=== PATIENT | female | born 1940 | race Caucasian/White ===

== ENCOUNTER 2017-09-24 17:06 | Observation (INO) | payer MEDICARE, BC, OTHER ==
[~2017-09-24 17:06] MED LIST: ALPR.25 PO; COMMODE 3-IN-11 MIS; ENOX40P SQ; FOLI5CAP PO; GETGO ROLLING W1 MI1; HYDR-3516 PO; KONS100P3 PO; LISI10TA PO; ONDA4TAB7 PO; PERI8.6T PO; SENN1TAB PO; VENTAER INH; WHEEMIS3; XARE10TA PO
[2017-09-24 17:14] VITALS: BP 140/79; PULSE 159; RESP 18; TEMP 98; O2SAT 99
[2017-09-24 17:29] LABS: AUTOMATED NEUTROPHIL # 5.7 TH/MM3 (1.8-7.7); BASOPHIL # 0.1 TH/MM3 (0-0.2); BASOPHIL % 0.8 % (0.0-2.0); EOSINOPHIL # 0.6 TH/MM3 (0-0.4); EOSINOPHIL % 6.2 % (0.0-4.0); HEMATOCRIT 40.9 % (35.0-46.0); HEMOGLOBIN 13.6 GM/DL (11.6-15.3); LYMPH % 27.8 % (9.0-44.0); LYMPHOCYTE # 2.7 TH/MM3 (1.0-4.8); MEAN CORPUSCULAR HEMOGLOBIN 29.3 PG (27.0-34.0); MEAN CORPUSCULAR HGB CONC 33.3 % (32.0-36.0); MEAN PLATELET VOLUME 7.8 FL (7.0-11.0); MONO % 5.6 % (0.0-8.0); MONOCYTE # 0.5 TH/MM3 (0-0.9); NEUT % 59.6 % (16.0-70.0); PLATELET COUNT 303 TH/MM3 (150-450); RED BLOOD COUNT 4.64 MIL/MM3 (4.00-5.30); RED CELL DISTRIBUTION WIDTH 11.8 % (11.6-17.2); WHITE BLOOD COUNT 9.6 TH/MM3 (4.0-11.0)
[2017-09-24] MEDS ORDERED: SODIUM CHLORIDE 0.9% FLUSH 10 ML FLUSH IVF PRN (17:30)
[2017-09-24] MEDS ORDERED: ENOXAPARIN SODIUM 60 MG/0.6 ML SYRINGE SQ ONE (17:30)
[2017-09-24] MEDS ORDERED: DILTIAZEM HCL 25 MG/5 ML VIAL IV PUSH ONE (17:30)
[2017-09-24] MEDS ORDERED: SODIUM CHLORIDE 0.9% FLUSH 10 ML FLUSH IV FLUSH PRN ×2 (17:30→19:30)
[2017-09-24 17:34] VITALS: BP 117/65; PULSE 142; RESP 18; O2SAT 98
[2017-09-24 17:37] LABS: CHLORIDE 103 MEQ/L (98-107); SODIUM (NA) 137 MEQ/L (136-145)
--- NOTE | 2017-09-24 17:37 | PD ---
HPI Chief Complaint: Cardiac Complaint Time Seen by Provider: 17:12 Travel History International Travel<30 days: No Contact w/Intl Traveler<30days: No Traveled to known affect area: No History of Present Illness HPI C/O PALPITATIONS, WENT TO [facility] SHE WAS DIAGNOSED WITH ATRIAL FIBRILLATION AND SENT TO ER FOR FURTHER CARE. I EXPLAINED TO PATIENT THE NEED FOR RATE CONTROL AND ANTICOAGULATION WELL CARDIAC EVALUATION WITH ECHO TO EVAL IF VALVULAR VS NONVALVULAR CAUSE OF AFIB. PATIENT DENIES CP/SOB/COUGH/N/V/ D/ABDPAIN/CANTU/BACK PAIN. PATIENT GOT VISIBLY UPSET AND DID NOT WANT ANY CARE WITHOUT ME EXPLAINING MY PLAN WITH HER BROTHER WHO IS A MILL CONTROL OPERATOR OVER THE PHONE. I SHARED PLAN OVER THE PHONE TO DEESCALATE SITUATION. ALL:AMOXIL PCP PMHX:COPD, HTN PFSH Past Medical History Arthritis: No Asthma: Yes Autoimmune Disease: No Anxiety: No Depression: No Heart Rhythm Problems: No Cancer: No Cardiovascular Problems: No High Cholesterol: No Chemotherapy: No Chest Pain: No Congestive Heart Failure: No COPD: Yes Cerebrovascular Accident: No Diabetes: No Endocrine: No GERD: No Glaucoma: No Genitourinary: No Hepatitis: No Hypertension: No Immune Disorder: No Kidney Stones: No Musculoskeletal: No Neurologic: No Psychiatric: No Reproductive: No Respiratory: Yes Migraines: No Radiation Therapy: No Renal Failure: No Seizures: No Sickle Cell Disease: No Sleep Apnea: No Thyroid Disease: No Ulcer: No ?: Not : 2 Para: 2 Past Surgical History Abdominal Surgery: Yes (RIN INGUINAL HERNIA REPAIR) AICD: No Arteriovenous Shunt: No Cardiac Surgery: No Ear Surgery: No Endocrine Surgery: No Eye Surgery: Yes (BILATERAL EYELID LIFT) Genitourinary Surgery: No Gynecologic Surgery: No Insulin Pump: No Joint Replacement: No Oral Surgery: Yes (DEVIATED NASAL SEPTUM) Pacemaker: No Thoracic Surgery: No Other Surgery: Yes (COLONOSCOPY) Social History Alcohol Use: Yes (SOCIALLY) Tobacco Use: No Substance Use: No Allergies-Medications (Allergen,Severity, Reaction): Coded Allergies: amoxicillin (Unverified Allergy, Unknown, 09/24/17) Reported Meds & Prescriptions Reported Meds & Active Scripts Active Xanax (Alprazolam) 0.25 Mg Tab 0.25 Mg PO Q12HR PRN Review of Systems Except as stated in HPI: all other systems reviewed are Neg General / Constitutional: No: Fever Eyes: No: Visual changes HENT: No: Headaches Cardiovascular: Positive: Palpitations, Irregular Rhythm Respiratory: No: Shortness of Breath Gastrointestinal: No: Abdominal Pain Genitourinary: No: Dysuria Musculoskeletal: No: Pain Skin: No Rash Neurologic: No: Weakness Psychiatric: No: Depression Endocrine: No: Polydipsia Hematologic/Lymphatic: No: Easy Bruising Physical Exam Narrative GENERAL: SKIN: Warm and dry. HEAD: Atraumatic. Normocephalic. EYES: Pupils equal and round. No scleral icterus. No injection or drainage. ENT: No nasal bleeding or discharge. Mucous membranes pink and moist. NECK: Trachea midline. No JVD. CARDIOVASCULAR: TACHYCARDIC RATE, IRREGULARLY IRREGULAR RHYTHM RESPIRATORY: No accessory muscle use. Clear to auscultation. Breath sounds equal bilaterally. GASTROINTESTINAL: Abdomen soft, non-tender, nondistended. MUSCULOSKELETAL: Extremities without clubbing, cyanosis, or edema. No obvious deformities. NEUROLOGICAL: Awake and alert. No obvious cranial nerve deficits. Motor grossly within normal limits. Five out of 5 muscle strength in the arms and legs. Normal speech. PSYCHIATRIC: Appropriate mood and affect; insight and judgment normal. Data Data Last Documented VS Vital Signs Date Time Temp Pulse Resp B/P (MAP) Pulse Ox O2 Delivery O2 Flow Rate FiO2 09/24/17 17:43 82 18 103/65 (78) 97 Room Air 09/24/17 17:14 98.0 Orders Orders Ecg Monitoring (09/24/17 17:19) Blood Pressure (09/24/17 17:19) Iv Access Insert/Monitor (09/24/17 17:19) Oximetry (09/24/17 17:19) Vital Signs (09/24/17 17:19) Diltiazem Inj (Cardizem Inj) (09/24/17 17:30) Sodium Chloride 0.9% Flush (Ns Flush) (09/24/17 17:30) Electrocardiogram (09/24/17 17:19) B-Type Natriuretic Peptide (09/24/17 17:19) Ckmb (Isoenzyme) Profile (09/24/17 17:19) Complete Blood Count With Diff (09/24/17 17:19) Comprehensive Metabolic Panel (09/24/17 17:19) Prothrombin Time / Inr (Pt) (09/24/17 17:19) Act Partial Throm Time (Ptt) (09/24/17 17:19) Troponin I (09/24/17 17:19) Lipase (09/24/17 17:19) Chest, Single Ap (09/24/17 17:19) Sodium Chloride 0.9% Flush (Ns Flush) (09/24/17 17:30) Enoxaparin Inj (Lovenox Inj) (09/24/17 17:30) Magnesium (Mg) (09/24/17 17:25) Thyroid Stimulating Hormone (09/24/17 17:25) Electrocardiogram (09/24/17 18:09) Admit Order (Ed Use Only) (09/24/17 18:42) Labs Laboratory Tests Test 09/24/17 17:25 White Blood Count 9.6 TH/MM3 Red Blood Count 4.64 MIL/MM3 Hemoglobin 13.6 GM/DL Hematocrit 40.9 % Mean Corpuscular Volume 88.0 FL Mean Corpuscular Hemoglobin 29.3 PG Mean Corpuscular Hemoglobin Concent 33.3 % Red Cell Distribution Width 11.8 % Platelet Count 303 TH/MM3 Mean Platelet Volume 7.8 FL Neutrophils (%) (Auto) 59.6 % Lymphocytes (%) (Auto) 27.8 % Monocytes (%) (Auto) 5.6 % Eosinophils (%) (Auto) 6.2 % Basophils (%) (Auto) 0.8 % Neutrophils # (Auto) 5.7 TH/MM3 Lymphocytes # (Auto) 2.7 TH/MM3 Monocytes # (Auto) 0.5 TH/MM3 Eosinophils # (Auto) 0.6 TH/MM3 Basophils # (Auto) 0.1 TH/MM3 CBC Comment DIFF FINAL Differential Comment Prothrombin Time 9.8 SEC Prothromb Time International Ratio 1.0 RATIO Activated Partial Thromboplast Time 25.7 SEC Blood Urea Nitrogen 14 MG/DL Creatinine 0.59 MG/DL Random Glucose 106 MG/DL Total Protein 7.6 GM/DL Albumin 3.5 GM/DL Calcium Level 9.0 MG/DL Magnesium Level 2.2 MG/DL Alkaline Phosphatase 92 U/L Aspartate Amino Transf (AST/SGOT) 24 U/L Alanine Aminotransferase (ALT/SGPT) 22 U/L Total Bilirubin 0.5 MG/DL Sodium Level 137 MEQ/L Potassium Level 3.6 MEQ/L Chloride Level 103 MEQ/L Carbon Dioxide Level 23.5 MEQ/L Anion Gap 11 MEQ/L Estimat Glomerular Filtration Rate 100 ML/MIN Total Creatine Kinase 65 U/L Troponin I 0.02 NG/ML B-Type Natriuretic Peptide 90 PG/ML Lipase 79 U/L Thyroid Stimulating Hormone 3rd Gen 1.410 uIU/ML MDM Medical Decision Making Medical Screen Exam Complete: Yes Emergency Medical Condition: Yes Medical Record Reviewed: Yes Interpretation(s) AT 1712 AFIB WITH RVR 120-160'S, SOME ST DEPRESSION THROUGHOUT ALL LEADS NOTED.....REPEAT EKG: AFIB WITH CVR AT 90'S BUT STILL IN AFIB RHYTHM AT 1815 Differential Diagnosis NEW ONSET AFIB V CARDIOMYOPATHY V ANEMIA V HYPERTHYROID DZ V VALVULAR DZ Narrative Course NO ANEMIA, NO FEVER, NORMAL TSH, NORMAL ELECTROLYTES, NORMAL KIDNEY/LIVER/ PANCREAS FUNCTIONS...NEGATIVE TROPONIN. CXR C/W COPD CHANGES WITHOUT MASS/ CONSOLIDATION/PTX. REPEAT EKG AFTER AN HOUR OF CARDIZEM AND LOVENOX WAS WELL CONTROLLED BUT STILL IN AFIB Critical Care Narrative CRITICAL CARE NOTE: With evaluation of the patient, labs, EKG, receipt of radiologic studies, administration of medications, reevaluation the patient and discussion of the patient with the admitting physicians, the total critical care time was [45] minutes. Time to perform other separately billable procedures was not included in the critical care time. Diagnosis Primary Impression: NEW ONSET ATRIAL FIBRILLATION WITH RVR Admitting Information Admitting Physician Requests: Observation Scripts Diltiazem CD 24 HR (Cardizem CD 24 HR) 120 Mg Caper 120 MG PO DAILY for afib, #30 CAP 0 Refills Prov: Paola Kitchen MD 09/25/17 Rivaroxaban (Xarelto) 20 Mg Tab 20 MG PO DAILY for Blood Clot Prevention, #31 TAB 0 Refills Prov: Paola Kitchen MD 09/25/17 Theodore Silvestre MD Sep 24, 2017 17:37
[2017-09-24 17:38] VITALS: BP 84/50; PULSE 86; RESP 18; O2SAT 98
[2017-09-24 17:41] LABS: ALBUMIN 3.5 GM/DL (3.4-5.0); LIPASE 79 U/L (73-393)
[2017-09-24 17:42] LABS: BICARBONATE 23.5 MEQ/L (21.0-32.0); BLOOD UREA NITROGEN 14 MG/DL (7-18); GLUCOSE,RANDOM 106 MG/DL (74-106)
[2017-09-24 17:43] VITALS: BP 103/65; PULSE 82; RESP 18; O2SAT 97
[2017-09-24 17:44] LABS: ALT (GPT) 22 U/L (10-53); AST (GOT) 24 U/L (15-37); CREATININE 0.59 MG/DL (0.50-1.00); GLOMERULAR FILTRATION RATE 100 ML/MIN (>89)
[2017-09-24 17:46] LABS: TOTAL BILIRUBIN ADULT 0.5 MG/DL (0.2-1.0); TOTAL PROTEIN 7.6 GM/DL (6.4-8.2)
[2017-09-24 17:47] LABS: ALKALINE PHOSPHATASE 92 U/L (45-117)
[2017-09-24 17:49] LABS: TROPONIN I 0.02 NG/ML (0.02-0.05)
--- NOTE | 2017-09-24 17:49 | RADRPT ---
EXAM DATE/TIME: 09/24/2017 17:28 [place] COMPARISON: CHEST SINGLE AP, September 17, 2016, 21:46. INDICATIONS : Palpitations, flutter in chest MEDICAL HISTORY : None. SURGICAL HISTORY : None. ENCOUNTER: Initial ACUITY: 1 day PAIN SCORE: 0/10 LOCATION: Bilateral chest FINDINGS: The lungs are clear without infiltrate, nodule, or mass. There is no appreciable pleural effusion fo r technique. Heart and mediastinum are unremarkable. CONCLUSION: No acute cardiopulmonary disease. Mina Duenas MD on September 24, 2017 at 17:46 Board Certified Radiologist. This report was verified electronically.
[2017-09-24 17:59] LABS: MAGNESIUM 2.2 MG/DL (1.5-2.5)
[2017-09-24 18:00] LABS: PROTHROMBIN TIME - PATIENT 9.8 SEC (9.8-11.6)
[2017-09-24] MEDS ORDERED: BISACODYL 10 MG SUPP RECTAL PRN (19:30)
[2017-09-24] MEDS ORDERED: SENNOSIDES 8.6 MG TAB PO PRN (19:30)
[2017-09-24] MEDS ORDERED: NALOXONE HCL 0.4 MG/ML AMP IV PUSH PRN (19:30)
[2017-09-24] MEDS ORDERED: MAGNESIUM HYDROXIDE SUSP 30 ML CUP PO PRN (19:30)
[2017-09-24] MEDS ORDERED: ONDANSETRON HCL 4 MG/2 ML VIAL IVP PRN (19:30)
[2017-09-24] MEDS ORDERED: ALPRAZolam 0.25 MG TAB PO PRN (19:30)
[2017-09-24] MEDS ORDERED: TEMAZEPAM 15 MG CAP PO PRN (19:30)
[2017-09-24] MEDS ORDERED: LACTULOSE SYRUP 20 GM/30 ML CUP PO PRN (19:30)
[2017-09-24 20:00] VITALS: BP 136/67; PULSE 82; RESP 20; TEMP 96.1; O2SAT 99
[2017-09-24] MEDS ORDERED: ENOXAPARIN SODIUM 40 MG/0.4 ML SYRINGE SQ SCH (20:00)
[2017-09-24] MEDS: DILTIAZEM HCL 30 MG TAB PO SCH (20:24)
[2017-09-24] MEDS: DOCUSATE SODIUM 50 MG/SENNA 8.6 MG TAB PO SCH (20:25)
[2017-09-24] MEDS: SODIUM CHLORIDE 0.9% FLUSH 10 ML FLUSH IV FLUSH SCH (20:25)
[2017-09-24 20:30] VITALS: PULSE 121
--- NOTE | 2017-09-24 21:48 | EKG ---
Date Performed: 09/24/2017 Time Performed: 18:15:50 PTAGE: 76 years EKG: ATRIAL FIBRILLATION ABNORMAL RHYTHM ECG Compared to prior electrocardiogram, rate has decre ased and Nonspecific ST changes no longer present. PREVIOUS TRACING : 09/18/2016 04.24 DOCTOR: Joesph Blair Interpretating Date/Time 09/24/2017 21:47:30
--- NOTE | 2017-09-24 21:57 | EKG ---
Date Performed: 09/24/2017 Time Performed: 17:12:34 PTAGE: 76 years EKG: Intermittent ATRIAL FIBRILLATION WITH RAPID VENTRICULAR RESPONSE Nonspecific ST changes ABN ORMAL ECG Compared to prior electrocardiogram, atrial fibrillation and Nonspecific ST changes are now present NO PREVIOUS TRACING DOCTOR: Joesph Blair Interpretating Date/Time 09/24/2017 21:56:26
[2017-09-25] VITALS (10 sets, daily range): BP systolic 80–110; BP diastolic 40–62; PULSE 62–86; RESP 15–22; TEMP 96–97.6; O2SAT 94–96
[2017-09-25 06:52] LABS: AUTOMATED NEUTROPHIL # 2.8 TH/MM3 (1.8-7.7); BASOPHIL % 0.7 % (0.0-2.0); EOSINOPHIL # 0.6 TH/MM3 (0-0.4); EOSINOPHIL % 9.1 % (0.0-4.0); HEMATOCRIT 37.9 % (35.0-46.0); HEMOGLOBIN 12.5 GM/DL (11.6-15.3); LYMPH % 42.2 % (9.0-44.0); MEAN CELL VOLUME 89.7 FL (80.0-100.0); MEAN CORPUSCULAR HEMOGLOBIN 29.5 PG (27.0-34.0); MEAN CORPUSCULAR HGB CONC 32.9 % (32.0-36.0); MEAN PLATELET VOLUME 7.7 FL (7.0-11.0); MONO % 7.5 % (0.0-8.0); MONOCYTE # 0.5 TH/MM3 (0-0.9); NEUT % 40.5 % (16.0-70.0); PLATELET COUNT 256 TH/MM3 (150-450); RED BLOOD COUNT 4.23 MIL/MM3 (4.00-5.30); WHITE BLOOD COUNT 6.9 TH/MM3 (4.0-11.0)
[2017-09-25 07:03] LABS: CALCIUM 8.4 MG/DL (8.5-10.1)
[2017-09-25 07:04] LABS: BICARBONATE 27.2 MEQ/L (21.0-32.0)
[2017-09-25 07:07] LABS: CREATININE 0.54 MG/DL (0.50-1.00)
[2017-09-25] MEDS ORDERED: NON-FORMULARY DRUG (Lisinopril-Hctz 1 TAB) PO SCH (09:00)
[2017-09-25] MEDS: HYDROCHLOROTHIAZIDE 25 MG TAB PO SCH (09:18)
[2017-09-25] MEDS: LISINOPRIL 10 MG TAB PO SCH (09:19)
[2017-09-25] MEDS: DILTIAZEM HCL 30 MG TAB PO SCH ×2 (09:19→12:52)
[2017-09-25] MEDS: DOCUSATE SODIUM 50 MG/SENNA 8.6 MG TAB PO SCH ×2 (09:19→20:22)
[2017-09-25] MEDS: SODIUM CHLORIDE 0.9% FLUSH 10 ML FLUSH IV FLUSH SCH ×2 (09:23→20:21)
[2017-09-25 12:43] LABS: HEMOGLOBIN A1C 5.8 % (4.3-6.0)
[2017-09-25] MEDS ORDERED: CARD120C4 PO (13:21)
[2017-09-25] MEDS ORDERED: XARE20TA PO (13:21)
--- NOTE | 2017-09-25 13:26 | HHI.HP ---
[facility] Lorenzo Flores M.D. Admission Diagnosis NEW ONSET AFIB Diagnoses: Chief Complaint: Palpitations Travel History International Travel<30 Days: No Contact w/Intl Traveler <30 Da: No Traveled to Known Affected Are: No History of Present Illness This patient is a 76-year-old female who appears her stated age. She had increased psychosocial stressors and noted some cardiac fluttering sensations. She does admit some alcohol however the palpations and her do not stop and she went to a local urgent care center who noted that she was in atrial fibrillation. She came to the emergency room for further evaluation. She does admit intermittent episodes of cardiac fluttering over the last several months but has never formally been checked. Her mother has atrial fibrillation onset in her 90s. (she is 98 years old and alive and well otherwise) The patient has since been observed in the medical unit on telemetry. She is in sinus rhythm after starting Cardizem. There has been no chest pain complaint. Echo cardiogram is pending. On my review x-ray of the chest is within normal limits without acute cardiopulmonary findings Review of Systems Constitutional: DENIES: Diaphoretic episodes, Fatigue, Fever, Weight gain, Weight loss, Chills, Dizziness, Change in appetite, Night Sweats Endocrine: DENIES: Abnorml menstrual pattern, Heat/cold intolerance, Polydipsia , Polyuria, Polyphagia Eyes: DENIES: Blurred vision, Diplopia, Eye inflammation, Eye pain, Vision loss , Photosensitivity, Double Vision Ears, nose, mouth, throat: DENIES: Tinnitus, Hearing loss, Vertigo, Nasal discharge, Oral lesions, Throat pain, Hoarseness, Ear Pain, Running Nose, Epistaxis, Sinus Pain, Toothache, Odynophagia Respiratory: DENIES: Apneas, Cough, Snoring, Wheezing, Hemoptysis, Sputum production, Shortness of breath Cardiovascular: COMPLAINS OF: Palpitations, DENIES: Chest pain, Syncope, Dyspnea on Exertion, PND, Lower Extremity Edema, Orthopnea, Claudication Gastrointestinal: DENIES: Abdominal pain, Black stools, Bloody stools, Constipation, Diarrhea, Nausea, Vomiting, Difficulty Swallowing, Anorexia Genitourinary: DENIES: Abnormal vaginal bleeding, Dysmenorrhea, Dyspareunia, Sexual dysfunction, Urinary frequency, Urinary incontinence, Urgency, Hematuria , Dysuria, Nocturia, Vaginal discharge Musculoskeletal: DENIES: Joint pain, Muscle aches, Stiffness, Joint Swelling, Back pain, Neck pain Integumentary: DENIES: Abnormal pigmentation, Pruritus, Rash, Nail changes, Breast masses, Breast skin changes, Nipple discharge Hematologic/lymphatic: DENIES: Bruising, Lymphadenopathy Immunologic/allergic: DENIES: Eczema, Urticaria Neurologic: DENIES: Abnormal gait, Headache, Localized weakness, Paresthesias, Seizures, Speech Problems, Tremor, Poor Balance Psychiatric: DENIES: Anxiety, Confusion, Mood changes, Depression, Hallucinations, Agitation, Suicidal Ideation, Homicidal Ideation, Delusions Except as stated in HPI: all other systems reviewed are Neg Past Family Social History Past Medical History Possibly COPD Past Surgical History Left leg surgery, varicose vein surgery Reported Medications Reviewed in the EMR Allergies: Coded Allergies: amoxicillin (Unverified Allergy, Unknown, 09/24/17) Active Ordered Medications Reviewed in the EMR Family History Mother is 98 and Well but with late onset A. fib in her 90s Father from COPD Social History No current tobacco or alcohol, has not smoked in 45 years, lives with her Physical Exam Vital Signs Vital Signs Date Time Temp Pulse Resp B/P (MAP) Pulse Ox O2 Delivery O2 Flow Rate FiO2 09/25/17 12:40 97.6 79 16 106/62 (77) 96 09/25/17 08:48 96.1 76 16 110/56 (74) 94 09/25/17 08:30 75 09/25/17 04:00 96.7 66 22 106/59 (75) 94 09/25/17 01:00 67 09/25/17 00:00 96.0 68 20 103/59 (74) 96 09/24/17 20:30 121 09/24/17 20:00 09/24/17 20:00 99 21 09/24/17 20:00 96.1 82 20 136/67 (90) 99 09/24/17 17:43 82 18 103/65 (78) 97 Room Air 09/24/17 17:38 86 18 84/50 (61) 98 Room Air 09/24/17 17:34 142 18 117/65 (82) 98 Room Air 09/24/17 17:18 159 09/24/17 17:14 98.0 159 18 140/79 (99) 99 Physical Exam GENERAL: This is a well-nourished, well-developed patient, in no apparent distress. SKIN: No rashes, ecchymoses or lesions. Cool and dry. HEAD: Atraumatic. Normocephalic. No temporal or scalp tenderness. EYES: Pupils equal round and reactive. Extraocular motions intact. No scleral icterus. No injection or drainage. ENT: Nose without bleeding, purulent drainage or septal hematoma. Throat without erythema, tonsillar hypertrophy or exudate. Uvula midline. Airway patent. NECK: Trachea midline. No JVD or lymphadenopathy. Supple, nontender, no meningeal signs. CARDIOVASCULAR: sinus, Regular rate and rhythm without murmurs, gallops, or rubs. RESPIRATORY: Clear to auscultation. Breath sounds equal bilaterally. No wheezes , rales, or rhonchi. GASTROINTESTINAL: Abdomen soft, non-tender, nondistended. No hepato-splenomegaly , or palpable masses. No guarding. MUSCULOSKELETAL: Extremities without clubbing, cyanosis, or edema. No joint tenderness, effusion, or edema noted. No calf tenderness. Negative Homans sign bilaterally. NEUROLOGICAL: Awake and alert. Cranial nerves II through XII intact. Motor and sensory grossly within normal limits. Five out of 5 muscle strength in all muscle groups. Normal speech. Laboratory Laboratory Tests Test 09/24/17 17:25 09/25/17 06:30 White Blood Count 9.6 6.9 Red Blood Count 4.64 4.23 Hemoglobin 13.6 12.5 Hematocrit 40.9 37.9 Mean Corpuscular Volume 88.0 89.7 Mean Corpuscular Hemoglobin 29.3 29.5 Mean Corpuscular Hemoglobin Concent 33.3 32.9 Red Cell Distribution Width 11.8 12.0 Platelet Count 303 256 Mean Platelet Volume 7.8 7.7 Neutrophils (%) (Auto) 59.6 40.5 Lymphocytes (%) (Auto) 27.8 42.2 Monocytes (%) (Auto) 5.6 7.5 Eosinophils (%) (Auto) 6.2 9.1 Basophils (%) (Auto) 0.8 0.7 Neutrophils # (Auto) 5.7 2.8 Lymphocytes # (Auto) 2.7 3.0 Monocytes # (Auto) 0.5 0.5 Eosinophils # (Auto) 0.6 0.6 Basophils # (Auto) 0.1 0.0 CBC Comment DIFF FINAL DIFF FINAL Differential Comment Prothrombin Time 9.8 Prothromb Time International Ratio 1.0 Activated Partial Thromboplast Time 25.7 Blood Urea Nitrogen 14 15 Creatinine 0.59 0.54 Random Glucose 106 109 Total Protein 7.6 Albumin 3.5 Calcium Level 9.0 8.4 Magnesium Level 2.2 Alkaline Phosphatase 92 Aspartate Amino Transf (AST/SGOT) 24 Alanine Aminotransferase (ALT/SGPT) 22 Total Bilirubin 0.5 Sodium Level 137 139 Potassium Level 3.6 3.5 Chloride Level 103 105 Carbon Dioxide Level 23.5 27.2 Anion Gap 11 7 Estimat Glomerular Filtration Rate 100 110 Total Creatine Kinase 65 Troponin I 0.02 B-Type Natriuretic Peptide 90 Lipase 79 Thyroid Stimulating Hormone 3rd Gen 1.410 Result Diagram: 09/25/17 0630 09/25/17 0630 Imaging Last Impressions Chest X-Ray 09/24/17 0779 Signed Impressions: Service Date/Time: Sunday, September 24, 2017 17:28 - CONCLUSION: No acute cardiopulmonary disease. Mina Duenas MD Capabrahami VTE Risk Assessment Caprini VTE Risk Assessment: Mod/High Risk (score >= 2) Caprini Risk Assessment Model Point Value = 1 Point Value = 2 Point Value = 3 Point Value = 5 Age 41-60 Minor surgery BMI > 25 kg/m2 Swollen legs Varicose veins or History of unexplained or recurrent spontaneous Oral contraceptives or hormone replacement Sepsis (< 1 month) Serious lung disease, including pneumonia (< 1 month) Abnormal pulmonary function Acute myocardial infarction Congestive heart failure (< 1 month) History of inflammatory bowel disease Medical patient at bed rest Age 61-74 Arthroscopic surgery Major open surgery (> 45 min) Laparoscopic surgery (> 45 min) Malignancy Confined to bed (> 72 hours) Immobilizing plaster cast Central venous access Age >= 75 History of VTE Family history of VTE Factor V Leiden Prothrombin [id number] Lupus anticoagulant Anticardiolipin antibodies Elevated serum homocysteine Heparin-induced thrombocytopenia Other congenital or acquired thrombophilia Stroke (< 1 month) Elective arthroplasty Hip, pelvis, or leg fracture Acute spinal cord injury (< 1 month) Prophylaxis Regimen Total Risk Factor Score Risk Level Prophylaxis Regimen 0-1 Low Early ambulation 2 Moderate Order ONE of the following: *Sequential Compression Device (SCD) *Heparin 5000 units SQ BID 3-4 Higher Order ONE of the following medications: *Heparin 5000 units SQ TID *Enoxaparin/Lovenox 40 mg SQ daily (WT < 150 kg, CrCl > 30 mL/min) *Enoxaparin/Lovenox 30 mg SQ daily (WT < 150 kg, CrCl > 10-29 mL/min) *Enoxaparin/Lovenox 30 mg SQ BID (WT < 150 kg, CrCl > 30 mL/min) AND/OR *Sequential Compression Device (SCD) 5 or more Highest Order ONE of the following medications: *Heparin 5000 units SQ TID (Preferred with Epidurals) *Enoxaparin/Lovenox 40 mg SQ daily (WT < 150 kg, CrCl > 30 mL/min) *Enoxaparin/Lovenox 30 mg SQ daily (WT < 150 kg, CrCl > 10-29 mL/min) *Enoxaparin/Lovenox 30 mg SQ BID (WT < 150 kg, CrCl > 30 mL/min) AND *Sequential Compression Device (SCD) Assessment and Plan Problem List: (1) Afib ICD Code: I48.91 - Unspecified atrial fibrillation Plan: Doing well on Cardizem add xarelto Echo pending Code Status Full code Discussed Condition With Patient, brother (Dr. Narayan core machine operator [phone]) Paola Kitchen MD Sep 25, 2017 13:25
--- NOTE | 2017-09-25 13:26 | HHI.DCPOC ---
Discharge Care Plan Diagnosis: (1) Afib Goals to Promote Your Health * To prevent worsening of your condition and complications * To maintain your health at the optimal level Directions to Meet Your Goals Take your medications as prescribed Follow your dietary instruction Follow activity as directed Keep your appointments as scheduled Take your immunizations and boosters as scheduled If your symptoms worsen call your PCP, if no PCP go to Urgent Care Center or Emergency Room Smoking is Dangerous to Your Health. Avoid second hand smoke Call the 24-hour hour crisis hotline for domestic abuse at Paola Kitchen MD Sep 25, 2017 13:26
--- NOTE | 2017-09-25 16:05 | ECHRPT ---
Indication: a-fib CONCLUSIONS The left ventricular systolic function is normal with an estimated ejection fraction in the range of 60-65%. Normal left ventricular size. Wall thickness is normal. No regional wall motion abnormalities are present. Trace mitral valve regurgitation. Aortic valve sclerosis is present. There is trace tricuspid valve regurgitation. The estimated pulmonary arterial pressure is 24.4 mmHg. BP: 110 / 56 HR: 74 Rhythm: Sinus MEASUREMENTS (Male / Female) Normal Values Technical Quality:Fair 2D ECHO LV Diastolic Diameter PLAX 3.4 cm 4.2 - 5.9 / 3.9 - 5.3 cm LV Systolic Diameter PLAX 2.3 cm IVS Diastolic Thickness 1.0 cm 0.6 - 1.0 / 0.6 - 0.9 cm LVPW Diastolic Thickness 1.0 cm 0.6 - 1.0 / 0.6 - 0.9 cm LV Relative Wall Thickness 0.6 RV Internal Dim ED PLAX 1.9 cm LVOT Diameter 1.8 cm LA Systolic Diameter LX 2.9 cm 3.0 - 4.0 / 2.7 - 3.8 cm LV Ejection Fraction MOD 4C 65.8 % LV Cardiac Index MOD 4C 2063.3 cm/minm LV Ejection Fraction 4C AL 66.4 % LV Cardiac Index 4C AL 2155.7 cm/minm M-MODE Aortic Root Diameter MM 2.0 cm AV Cusp Separation MM 1.3 cm DOPPLER AV Peak Velocity 185.0 cm/s AV Peak Gradient 13.7 mmHg LVOT Peak Velocity 116.0 cm/s LVOT Peak Gradient 5.4 mmHg AV Area Cont Eq pk 1.6 cm MV Area PHT 3.0 cm Mitral E Point Velocity 83.4 cm/s Mitral A Point Velocity 109.0 cm/s Mitral E to A Ratio 0.8 LV E' Lateral Velocity 8.7 cm/s Mitral E to LV E' Lateral Ratio 9.6 LV E' Septal Velocity 6.7 cm/s Mitral E to LV E' Septal Ratio 12.4 TR Peak Velocity 190.0 cm/s TR Peak Gradient 14.4 mmHg Right Atrial Pressure 10.0 mmHg Pulmonary Artery Systolic Pressu 24.4 mmHg Right Ventricular Systolic Press 24.4 mmHg PV Peak Velocity 99.1 cm/s PV Peak Gradient 3.9 mmHg FINDINGS LEFT VENTRICLE The left ventricular systolic function is normal with an estimated ejection fraction in the range of 60-65%. Normal left ventricular size. Wall thickness is normal. No regional wall motion abnormalities are present. RIGHT VENTRICLE Normal right ventricular size and systolic function. LEFT ATRIUM The left atrial size is normal. RIGHT ATRIUM The right atrial size is normal. ATRIAL SEPTUM Normal atrial septal thickness without atrial level shunting by limited color doppler interrogation. AORTA The aortic root and proximal ascending aorta are normal in size on limited imaging. MITRAL VALVE Structurally normal mitral valve. Trace mitral valve regurgitation. AORTIC VALVE Trileaflet aortic valve. Aortic valve sclerosis is present. TRICUSPID VALVE Structurally normal tricuspid valve. There is trace tricuspid valve regurgitation. The estimated pulmonary arterial pressure is 24.4 mmHg. PULMONARY VALVE No pulmonary valve regurgitation or stenosis. VESSELS The inferior vena cava is normal in size. PERICARDIUM No pericardial effusion. Qasim Griffiths MD, FACC (Electronically Signed) Final Date:25 September 2017 16:05
[2017-09-25] MEDS ORDERED: SODIUM CHLORID 0.9% 500 ML INJ 500 ML IV ONE ×2 (17:00→20:15)
[2017-09-25] MEDS ORDERED: ENOXAPARIN SODIUM 40 MG/0.4 ML SYRINGE SQ SCH (18:00)
[2017-09-25] MEDS ORDERED: SODIUM CHLOR 0.9% 1000 ML INJ 1,000 ML IV SCH (23:15)
[2017-09-26] VITALS: BP 102/50; PULSE 67; RESP 18; TEMP 97.1; O2SAT 96
[2017-09-26 04:00] VITALS: BP 100/54; PULSE 72; RESP 18; TEMP 97; O2SAT 91
[2017-09-26 08:00] VITALS: BP 114/55; PULSE 75; PULSE 79; RESP 18; TEMP 98.3; O2SAT 95
[2017-09-26] MEDS: LISINOPRIL 10 MG TAB PO SCH (08:04)
[2017-09-26] MEDS: HYDROCHLOROTHIAZIDE 25 MG TAB PO SCH (08:04)
[2017-09-26] MEDS: DOCUSATE SODIUM 50 MG/SENNA 8.6 MG TAB PO SCH (08:05)
[2017-09-26] MEDS: DILTIAZEM-CD 120 MG CAP ER PO SCH ×2 (08:05→12:06)
[2017-09-26] MEDS: SODIUM CHLORIDE 0.9% FLUSH 10 ML FLUSH IV FLUSH SCH (08:06)
--- NOTE | 2017-09-26 11:35 | HHI.DS ---
Discharge Summary Admission Date Sep 24, 2017 at 18:44 Discharge Date: Sep 26, 2017 Admitting Diagnosis NEW ONSET AFIB (1) Afib ICD Code: I48.91 - Unspecified atrial fibrillation Procedures none Brief History - From Admission This patient is a 76-year-old female who appears her stated age. She had increased psychosocial stressors and noted some cardiac fluttering sensations. She does admit some alcohol however the palpations and her do not stop and she went to a local urgent care center who noted that she was in atrial fibrillation. She came to the emergency room for further evaluation. She does admit intermittent episodes of cardiac fluttering over the last several months but has never formally been checked. Her mother has atrial fibrillation onset in her 90s. (she is 98 years old and alive and well otherwise) The patient has since been observed in the medical unit on telemetry. She is in sinus rhythm after starting Cardizem. There has been no chest pain complaint. Echo cardiogram is pending. On my review x-ray of the chest is within normal limits without acute cardiopulmonary findings CBC/BMP: 09/25/17 0630 09/25/17 0630 Significant Findings Laboratory Tests Test 09/24/17 17:25 09/25/17 06:30 Eosinophils (%) (Auto) 6.2 % (0.0-4.0) 9.1 % (0.0-4.0) Eosinophils # (Auto) 0.6 TH/MM3 (0-0.4) 0.6 TH/MM3 (0-0.4) Random Glucose 109 MG/DL (74-106) Calcium Level 8.4 MG/DL (8.5-10.1) Imaging Last Impressions Chest X-Ray 09/24/17 1939 Signed Impressions: Service Date/Time: Sunday, September 24, 2017 17:28 - CONCLUSION: No acute cardiopulmonary disease. Mina Duenas MD PE at Discharge GENERAL: This is a well-nourished, well-developed patient, in no apparent distress. CARDIOVASCULAR: Regular rate and rhythm without murmurs, gallops, or rubs. RESPIRATORY: Clear to auscultation. Breath sounds equal bilaterally. No wheezes , rales, or rhonchi. GASTROINTESTINAL: Abdomen soft, non-tender, nondistended. Normal active bowel sounds MUSCULOSKELETAL: Extremities without clubbing, cyanosis, or edema. NEURO: Alert & Oriented x4 to person, place, time, situation. Moves all ext x4 Pt update on day of discharge Patient is seen today in follow-up for new onset atrial fibrillation. In sinus rhythm on telemetry, no complaints. Blood pressure improved after IV hydration and medications discussed with patient Hospital Course This patient is a 67-year-old female with new onset atrial fibrillation. The patient has actually converted to sinus however she did have some hypotension after diltiazem was started. Patient has been better on medications. Pt Condition on Discharge: Good Discharge Disposition: Discharge Home Discharge Time: <= 30 minutes Discharge Instructions DIET: Follow Instructions for: As Tolerated, No Restrictions Activities you can perform: Regular-No Restrictions Follow up Referrals: Cardiology - 2 Weeks with Trevon Silva MD New Medications: Diltiazem CD 24 HR (Cardizem CD 24 HR) 120 Mg Caper 120 MG PO DAILY for afib, #30 CAP 0 Refills Rivaroxaban (Xarelto) 20 Mg Tab 20 MG PO DAILY for Blood Clot Prevention, #31 TAB 0 Refills Continued Medications: Alprazolam (Xanax) 0.25 Mg Tab 0.25 MG PO Q12HR PRN for ANXIETY, #30 TAB 0 Refills Discontinued Medications: Lisinopril-Hctz (Lisinopril-Hctz) 10-12.5 Mg Tab 1 TAB PO DAILY for Blood Pressure Management, #30 TAB 0 Refills Paola Kitchen MD Sep 26, 2017 11:35
[2017-09-26] MEDS ORDERED: RIVAROXABAN 20 MG TAB PO SCH (11:45)
== END 2017-09-26 13:03 | disposition home or self-care (01) ==
LOC: PHED 17:06 → PHEDA 18:44 → PH3B 19:50
PROVIDERS: ADMIT Hospitalist; ATTEND Hospitalist
DX: I48.91 Unspecified atrial fibrillation (principal); I10 Essential (primary) hypertension; J44.9 Chronic obstructive pulmonary disease, unspecified; Z79.01 Long term (current) use of anticoagulants
CPT/HCPCS: 71010; 80048; 80053; 82550; 83036; 83690; 83735; 83880; 84443; 84484; 85025; 85610; 85730; 93005; 93306; 96361; 96372; 96374; 97161; 99291; G0378; G8987; G8988; J1650; J7030; J7040